=== PATIENT | male | born 1950 | race Caucasian/White ===

== ENCOUNTER → 2018-08-25 | Outpatient (CLI) | payer OTHER, BC ==
[~2018-08-25] VITALS: Ht 182.9 cm; Wt 88.5 kg
[~2018-08-25] MED LIST: ALTACE5 M1 PO; ALTACE5 MG PO; ASA5UEC; ASPIR 8181 MG PO; ASPIRIN325 PO; CENTRUM TABLET1 TAB PO; FLOMAX PO; IBUPROFEN 600600 M1 PO; LIDOCAINE; LIPITOR20 MG PO; LISINOPRIL10 MG PO; LORTAB PO; METAMUCIL0.52 GM PO; NORCO 5-325 TA1 EACH PO; PROTONIX40 M2 PO; VITAMIN D1000 UNI1 PO
--- NOTE | ~2018-08-25 | P ---
[facility] [place] [address] PROCEDURE REPORT Name: JOMAR WALKER Room #: REG [facility]#: [id number] Admission: 08/25/18 Attend Phys: Cole Nixon MD Discharge: Date of : 46 Report #: [id number] THIS REPORT FOR: //name// CC: Cole Keith MD DATE OF SERVICE: 08/25/2018 OUTPATIENT UPPER ENDOSCOPY BRIEF HISTORY: The patient is a 68-year-old man with history of Peña's esophagus. He has reflux disease, which is well controlled with pantoprazole. He presents for routine surveillance due to his history of Peña's esophagus. PREOPERATIVE DIAGNOSIS: Peña's esophagus. POSTOPERATIVE DIAGNOSES: 1. Short segment Peña's esophagus. 2. A 3-5 cm sliding type hiatus hernia. MEDICATIONS: Deep sedation with propofol per anesthesia. SPECIMEN: Biopsies of distal esophagus, Peña's, rule out dysplasia. ESTIMATED BLOOD LOSS: 3 mL. PROCEDURE: EGD with biopsy. FINDINGS: Prior to propofol sedation, procedure of upper endoscopy and biopsy was discussed with the patient as well as potential risks and its complications. He indicates he understands and desires to proceed. DESCRIPTION OF PROCEDURE: With the patient in left lateral decubitus position, the Olympus video endoscope was inserted in cervical esophagus under direct vision without difficulty. Examination of this organ through its entire length revealed normal esophageal mucosa down the squamocolumnar junction. At the squamocolumnar junction, in the distal esophagus, there was an irregular Z line with Peña's mucosa covering about 2/3-3/4 of the circumference. It was all less than 2 cm. The mucosa was flat. No ulcers or erosions were seen. No nodules were seen. Biopsies were obtained of the Peña's mucosa. The scope was advanced and a 3-5 cm sliding type hiatus hernia was seen. The mucosa was normal within the hernia. The hernia was large enough to allow retroflexion of the scope. Upon retroflexion, no other lesions were seen. The scope was advanced fully into the stomach, was examined on end view as well as retroflexed views. The gastric mucosa was unremarkable. Upon retroflexion, the hiatus [facility] [address] [place] [address] PROCEDURE REPORT Name: AARONJOMAR Room #: REG [facility].#: [id number] Admission: 08/25/18 Attend Phys: Cole Nixon MD Discharge: Date of : 46 Report #: [id number] hernia was seen. No other abnormalities were identified. The pylorus, duodenal bulb and postbulbar sweep were inspected, noted to be within normal limits. At that point, the scope was slowly withdrawn and careful circumferential views confirmed the above findings. The patient tolerated the procedure well. DISPOSITION: The patient with history of reflux disease and Peña's esophagus. Biopsies obtained of the Peña's mucosa, which just appears flat and benign today. Will follow up on biopsies and make further recommendations. If he does not have dysplasia, we will have him return in 3 years. He should continue use of PPI for control of reflux. He reports his reflux is doing well at this point in time. If he has worsening or difficulty in the future, surgical repair and antireflux procedure may be an option with regards to manage his reflux disease. By: [id number] Cole Nixon MD /nt
--- NOTE | ~2018-08-25 | PATH ---
[facility] [address] [place] [address] PATHOLOGY RPT PROCEDURE Name: SAMM WALKER Room #: REG [facility]#: [id number] Admission: 08/25/18 Date of : 46 Discharge: Report #: [id number] Path Case #: [id number] [facility] Accession Number: [id number] . 01 Material submitted: . DISTAL ESOPHAGUS BIOPSY R/O BARRETTS R/O DYSPLASIA . 01 Clinical history: . Pre-OP DX: Hx Peña's esophagus Post-OP DX: Hiatal hernia, Peña's esophagus . 02 Diagnosis: Gastroesophageal mucosa, distal esophagus, rule out Peña's, endoscopic biopsy: - Specialized columnar epithelium (gastric cardia-type mucosa) with intestinal metaplasia, compatible with Peña's metaplasia (please see comment). - Negative for dysplasia. - Squamous mucosa with mild esophagitis. . (IUV:mml; 08/26/18) QL/08/26/2018 . 02 Comment: The above diagnosis of Peña's esophagus is made due to presence of intestinal metaplasia and with the assumption that the biopsies were obtained from the columnar mucosa in the distal esophagus located at least 1 cm proximal to the top of the gastric folds as per the 2016 ACG guidelines. . This case is co-reviewed by Dr. Anjelica Rosas, who concurs with my diagnosis. . (IUV:mml; 08/26/18) . 02 Electronically signed: . Cris Barton MD, Pathologist NPI- [id number] . 01 Gross description: . Received in formalin labeled "Samm Walker, distal esophagus biopsy, rule out Peña's, rule out dysplasia," are 5 segments of nair soft tissue measuring 0.9 x 0.6 x 0.3 cm in aggregate dimensions and ranging from 0.3 to 0.4 cm in maximum dimension. The specimen is submitted entirely in cassette A1. (TSD; 08/25/2018) TOB/[place] [address] PATHOLOGY RPT PROCEDURE Name: AARONSAMM Rosa Room #: REG [facility].#: [id number] Admission: 08/25/18 Date of : 46 Discharge: Report #: [id number] Path Case #: [id number] . 02 Pathologist provided ICD-10: K22.70 . 02 CPT . 815778 Specimen Comment: A courtesy copy of this report has been sent to Specimen Comment: [phone]. Specimen Comment: Report sent to Performed at: [address] [facility], [place], [place] [id number] MD Aaron Esposito MD Phone: [phone] Performed at: [address] [facility] [id number] MD Cris Barton MD Phone: [phone]
== END | disposition home or self-care (01) ==
LOC: GI 08:33
DX: K22.70 Barrett's esophagus without dysplasia (principal); K44.9 Diaphragmatic hernia without obstruction or gangrene; K21.9 Gastro-esophageal reflux disease without esophagitis; I10 Essential (primary) hypertension; E78.5 Hyperlipidemia, unspecified; Z98.890 Other specified postprocedural states; Z95.5 Presence of coronary angioplasty implant and graft; Z87.891 Personal history of nicotine dependence; Z87.442 Personal history of urinary calculi; Z79.899 Other long term (current) drug therapy; Z85.828 Personal history of other malignant neoplasm of skin; Z79.82 Long term (current) use of aspirin; Z88.0 Allergy status to penicillin; Z87.19 Personal history of other diseases of the digestive system
CPT/HCPCS: 62110; 62900

== ENCOUNTER → 2020-07-19 | Outpatient (CLI) | payer OTHER, BC | LOC: LAB 12:22 | PROVIDERS: ATTEND Family Medicine | DX: Z20.828 Contact with and (suspected) exposure to other viral communicable diseases (principal) ==

== ENCOUNTER → 2020-08-01 | Outpatient (CLI) | payer OTHER, BC | LOC: SJCVC 13:39 | PROVIDERS: ATTEND Internal Medicine | DX: R94.31 Abnormal electrocardiogram [ECG] [EKG] (principal); I25.10 Atherosclerotic heart disease of native coronary artery without angina pectoris; I10 Essential (primary) hypertension; E78.5 Hyperlipidemia, unspecified; I65.29 Occlusion and stenosis of unspecified carotid artery ==